=== PATIENT | female | born 1965 | race Caucasian/White ===

== ENCOUNTER 2022-05-20 09:27 | Emergency (ER) | payer BC ==
[~2022-05-20] VITALS: Ht 167.6 cm; Wt 138.3 kg
--- NOTE | 2022-05-20 09:35 | NUR ---
RECVEIVED PT 57 YRS FEMALE C/O rash in different spot and redness and itching
--- NOTE | 2022-05-20 09:45 | NUR ---
Seen by DR. COX
--- NOTE | 2022-05-20 09:50 | NUR ---
INSERTED ANGO CATHETER G 20 ON LT AC IVF NS infused and patatet
[2022-05-20] MEDS ORDERED: diphenhydrAMINE HCL 50 MG/ML VIAL ONE (09:58)
[2022-05-20] MEDS ORDERED: methylPREDNISolone SOD SUCC 125 MG/2ML VIAL ONE (09:59)
[2022-05-20] MEDS ORDERED: IV NS 0.9% 1,000 ML BAG IV ONE (10:00)
[2022-05-20] MEDS ORDERED: methylPREDNISolone SOD SUCC 125 MG/2ML VIAL IV ONE (10:00)
[2022-05-20] MEDS ORDERED: FAMOTIDINE/PF INJ 20 MG/2 ML VIAL IV ONE ×2 (10:00)
[2022-05-20] MEDS ORDERED: diphenhydrAMINE HCL 50 MG/ML VIAL IV ONE (10:00)
--- NOTE | 2022-05-20 10:45 | NUR ---
PT IMPROVING RASH BEATER
[2022-05-20] MEDS ORDERED: DIPH25CA83 PO (10:51)
[2022-05-20] MEDS ORDERED: FAMO-131 PO (10:51)
[2022-05-20] MEDS ORDERED: PRED20TA PO (10:51)
--- NOTE | 2022-05-20 11:05 | NUR ---
Patient discharged to home in stable condition. Written and verbal after care instructions given. Patient verbalizes understanding of instruction.
--- NOTE | 2022-05-20 11:30 | NUR ---
IV removed. Catheter intact and site benign. Pressure and 4x4 applied to site. No bleeding noted.
[2022-05-20 11:37] VITALS: BP 130/60
== END 2022-05-20 11:38 | disposition home or self-care (01) ==
LOC: ER 09:40
DX: L50.0 Allergic urticaria (principal); I10 Essential (primary) hypertension; E11.9 Type 2 diabetes mellitus without complications
CPT/HCPCS: 99284; 96374; 96375; 96361; J1200; J3490; J2930; J7030